=== PATIENT | female | born 1990 | race Caucasian/White ===

== ENCOUNTER 2018-12-15 17:57 | Emergency (ER) | payer OTHER ==
[2018-12-15] MEDS: DIAZEPAM 5 MG TAB PO (18:57)
[2018-12-15] MEDS: IBUPROFEN 600 MG TAB PO (18:57)
[2018-12-15] MEDS: HYDROCODONE/APAP (10/325) TAB PO (20:40)
[2018-12-15] MEDS: ONDANSETRON (ODT) 4 MG TAB ODT (20:40)
== END 2018-12-15 21:10 | disposition home or self-care (01) ==
LOC: FTE 21:10
DX: S89.91XA Unspecified injury of right lower leg, initial encounter (principal); X50.1XXA Overexertion from prolonged static or awkward postures, initial encounter; Y92.196 Pool of other specified residential institution as the place of occurrence of the external cause
CPT/HCPCS: 29505; 73562; 81025; 93971; 99284-25